=== PATIENT | female | born 1975 | race Caucasian/White ===

== ENCOUNTER 2017-11-25 13:38 | Emergency (ER) | payer BC ==
[2017-11-25] MEDS ORDERED: ACETAMINOPHEN TAB 325 MG TAB PO STA (15:08)
--- NOTE | 2017-11-25 15:44 | ED ---
General Adult HPI - General Chief complaint: Fall Stated complaint: Fell on friday/back pain Time Seen by Provider: 11/25/17 15:01 Source: patient, RN notes reviewed Mode of arrival: ambulatory Limitations: no limitations - History of Present Illness Initial comments: 42-year-old female presents to the emergency department for a chief complaint of left rib pain 3 days. Patient states she rolled out of her bed when she was asleep and fell hitting her ribs on the edge of a stair. Patient denies hitting her head or losing consciousness. Patient states it is painful to walk and take a deep breath. Patient denies shortness of breath or difficulty breathing. Patient sustained no other injuries from this incident. Patient states she has very mild right side pain but it is mostly in her posterior right ribs. Patient has no other complaints at this time including shortness of breath, chest pain, abdominal pain, nausea or vomiting, headache, or visual changes. - Related Data Home Medications Medication Instructions Recorded Confirmed Levothyroxine Sodium [Synthroid] 150 mcg PO DAILY 07/08/14 04/10/15 Omeprazole [PriLOSEC] 20 mg PO AC-BRKFST 07/08/14 04/10/15 busPIRone HCl [Buspar] 5 mg PO TID 07/08/14 04/10/15 clonazePAM [KlonoPIN] 0.5 mg PO BID 07/08/14 04/10/15 ALPRAZolam 0.5 mg PO DAILY PRN 07/11/14 04/10/15 Multivitamins, Thera [Multivitamin 1 tab PO DAILY 08/01/14 04/10/15 (formulary)] Orion-3 Fatty Acids/Fish Oil [Fish 1 cap PO DAILY 08/01/14 04/10/15 Oil 1,000 mg Softgel] Ascorbic Acid [Vitamin C] 500 mg PO DAILY@119904/04/15 04/10/15 Calcium Carbonate [Calcium] 600 mg PO DAILY 04/04/15 04/10/15 Cholecalciferol [Vitamin D3] 1,000 unit PO DAILY@1200 04/04/15 04/10/15 Cyanocobalamin [Vitamin B-12] 1,000 mcg PO DAILY@1200 04/04/15 04/10/15 Diclofenac Sodium Gel [Voltaren 4 gm TOPICAL BID PRN 04/04/15 04/10/15 Gel] Pyridoxine [Vitamin B-6] 200 mg PO DAILY 04/04/15 04/10/15 Ranitidine HCl [Zantac] 150 mg PO HS 04/04/15 04/10/15 Previous Rx's Medication Instructions Recorded HYDROcodone/APAP 7.5-325MG [[place] 1 each PO Q6HR PRN #90 tab 04/11/15 7.5-325] Azithromycin [Zithromax Z-pack] 250 mg PO DIRECTED #6 tab 11/25/17 Allergies Allergy/AdvReac Type Severity Reaction Status Date / Time NSAIDS (Non-Steroidal Allergy Unknown HX OF Verified 04/10/15 18:44 Anti-Inflamma STOMACH BLEEDING, TOLD NOT TO TAKE. HIVES AROUND MOUTH Review of Systems ROS Statement: Those systems with pertinent positive or pertinent negative responses have been documented in the HPI. ROS Other: All systems not noted in ROS Statement are negative. Past Medical History Past Medical History: GERD/Reflux, Osteoarthritis (OA), Thyroid Disorder Additional Past Medical History / Comment(s): HX OF STOMACH BLEED, TMJ DISORDER. Started w/neck,shoulder pain in January, trouble walking since Labor Day weekend, now having some bowel/bladder problems, seeing neurologist 04-05, possible MS-trying to rule out History of Any Multi-Drug Resistant Organisms: None Reported Past Surgical History: Section, Hernia Repair Additional Past Surgical History / Comment(s): SINUS SURG, LAPAROSCOPY, Right OOPHERECTOMY JUL 2014. Jaw surg.04-10-15 anterior cervical fusion c4-c7 Past Anesthesia/Blood Transfusion Reactions: No Reported Reaction, Family History of Problems w/ Anesthesia Additional Past Anesthesia/Blood Transfusion Reaction / Comment(s): PTS MOTHER HAS PONV. Past Psychological History: Anxiety Smoking Status: Current every day smoker Past Alcohol Use History: Rare Past Drug Use History: None Reported - Past Family History Mother Family Medical History: No Reported History Additional Family Medical History / Comment(s): ddd, ulcerative colitis Father Family Medical History: Osteoarthritis (OA) General Exam Limitations: no limitations General appearance: alert, in no apparent distress (Patient is pleasantly sitting on edge of bed interacting without difficulty.) Head exam: Present: atraumatic, normocephalic, normal inspection Eye exam: Present: normal appearance, PERRL, EOMI. Absent: scleral icterus, conjunctival injection, periorbital swelling ENT exam: Present: normal exam, normal oropharynx, mucous membranes moist, TM's normal bilaterally, normal external ear exam Neck exam: Present: normal inspection, full ROM. Absent: tenderness, meningismus, lymphadenopathy Respiratory exam: Present: normal lung sounds bilaterally. Absent: respiratory distress, wheezes, rales, rhonchi, stridor Cardiovascular Exam: Present: regular rate, normal rhythm, normal heart sounds. Absent: systolic murmur, diastolic murmur, rubs, gallop, clicks GI/Abdominal exam: Present: soft, normal bowel sounds. Absent: distended, tenderness (no tenderness to palpation), guarding, rebound, rigid Back exam: Present: full ROM, other (Patient has mild ecchymosis in the left posterior ribs correlated with tenderness. No step off palpated. ). Absent: CVA tenderness (R), CVA tenderness (L), vertebral tenderness Course Vital Signs 11/25/17 11/25/17 13:43 16:23 Temperature 98.0 F 99.3 F Pulse Rate 106 H 118 H Respiratory 18 20 Rate Blood Pressure 93/64 124/83 O2 Sat by Pulse 100 100 Oximetry Medical Decision Making - Medical Decision Making 42-year-old female presented to the emergency room for a chief complaint of left -sided rib pain 3 days. Patient rolled out of bed and fell hitting her ribs on a step. Patient did not hit her head or lose consciousness. Patient has had Tylenol and Flexeril which has helped with the pain. Patient states it hurts to press her ribs or take a deep breath. Patient denies shortness of breath or difficult deep breathing. On exam there is mild ecchymosis noted on the posterior ribs correlated with tenderness. No step-off palpated. X-ray of the ribs and PA chest shows no displaced left rib fracture. However there are patchy infiltrates mid and lower lungs. Inflammatory process such as interstitial pneumonitis and hypersensitivity pneumonitis are in the differential as well as infectious respiratory signs. Patient was sightly tachycardia at 118 with blood pressure 93/64 and 124/83. Patient was consistently 100% at room air. Because of these vitals lab work was ordered. CBC shows a white count of 11.4. The remainder of the CBC and CMP were unremarkable. Lactic acid within normal limits. Patient was given Rocephin and azithromycin IV in the emergency department. She will be given a Z-Trevon outpatient. She is to follow-up with the airfield operations specialist in one to 2 days. She is to return to the emergency determine if she notices any worsening symptoms, shortness of breath, or fever. - Lab Data Result diagrams: 11/25/17 16:50 11/25/17 16:50 Lab Results 11/25/17 11/25/17 11/25/17 Range/Units 16:50 16:50 16:50 WBC 11.4 H (3.8-10.6) k/uL RBC 3.57 L (3.80-5.40) m/uL Hgb 10.6 L (11.4-16.0) gm/dL Hct 33.2 L (34.0-46.0) % MCV 93.0 (80.0-100.0) fL MCH 29.8 (25.0-35.0) pg MCHC 32.1 (31.0-37.0) g/dL RDW 14.3 (11.5-15.5) % Plt Count 258 (150-450) k/uL Neutrophils % 83 % Lymphocytes % 10 % Monocytes % 4 % Eosinophils % 2 % Basophils % 0 % Neutrophils # 9.5 H (1.3-7.7) k/uL Lymphocytes # 1.2 (1.0-4.8) k/uL Monocytes # 0.4 (0-1.0) k/uL Eosinophils # 0.2 (0-0.7) k/uL Basophils # 0.0 (0-0.2) k/uL Sodium 143 (137-145) mmol/L Potassium 3.8 (3.5-5.1) mmol/L Chloride 106 (98-107) mmol/L Carbon Dioxide 24 (22-30) mmol/L Anion Gap 13 mmol/L BUN 9 (7-17) mg/dL Creatinine 0.60 (0.52-1.04) mg/dL Est GFR (CKD-EPI)AfAm >90 (>60 ml/min/1.73 sqM) Est GFR (CKD-EPI)NonAf >90 (>60 ml/min/1.73 sqM) Glucose 94 (74-99) mg/dL Plasma Lactic Acid [place]ad 1.4 (0.7-2.0) mmol/L Calcium 8.7 (8.4-10.2) mg/dL Total Bilirubin 0.3 (0.2-1.3) mg/dL AST 51 H (14-36) U/L ALT 79 H (9-52) U/L Alkaline Phosphatase 96 (38-126) U/L Total Protein 6.0 L (6.3-8.2) g/dL Albumin 3.5 (3.5-5.0) g/dL Disposition Clinical Impression: Pneumonia, Pneumonitis Disposition: HOME SELF-CARE Condition: Good Instructions: Pneumonitis (ED), Pneumonia (ED) Additional Instructions: Please take antibiotic as directed. Please return to the emergency department if you have any worsening symptoms, shortness of breath, or fever. Follow-up with pulmonology in one to 2 days. Prescriptions: Azithromycin [Zithromax Z-pack] 250 mg PO DIRECTED #6 tab Is patient prescribed a controlled substance at d/c from ED?: No Referrals: Sloan Cook MD [Primary Care Provider] - 1-2 days Willian Banks DO [Doctor of Osteopathic Medicine] - 1-2 days Time of Disposition: 19:14
--- NOTE | 2017-11-25 15:49 | XR ---
EXAMINATION TYPE: PA chest and left rib series DATE OF EXAM: 11/25/2017 COMPARISON: 04/05/2015 HISTORY: 42-year-old female with lower left rib pain after fall TECHNIQUE: 5 views FINDINGS: ACDF hardware. Heart normal size. Aorta within normal limits. Patchy opacities mid and lower lungs. No pneumothorax or pleural effusion. Evaluation of the left-sided ribs shows no displaced fracture. IMPRESSION: 1. No displaced left rib fracture. 2. Patchy infiltrates mid and lower lungs. Correlate for any infectious respiratory signs/symptoms to exclude pneumonia. Inflammatory processes such as interstitial pneumonitis and hypersensitivity pneu monitis are also in the differential. Follow-up is recommended.
[2017-11-25] MEDS ORDERED: SODIUM CHLORIDE 0.9% 1,000 ML IV STA (16:38)
[2017-11-25] MEDS ORDERED: cefTRIAXone IN SWFI 1,000 MG/10 ML SYRINGE IVP STA (17:06)
[2017-11-25] MEDS ORDERED: AZITHROMYCIN 500 MG in SODIUM CHLORIDE 0.9% 250 ML IVPB STA (17:06)
[2017-11-25 17:08] LABS: Basophils % (A) 0 %; Eosinophils # (A) 0.2 k/uL (0-0.7); Eosinophils % (A) 2 %; HCT 33.2 % (34.0-46.0); HGB 10.6 gm/dL (11.4-16.0); Lymphocytes # (A) 1.2 k/uL (1.0-4.8); Lymphocytes % (A) 10 %; MCH 29.8 pg (25.0-35.0); MCHC 32.1 g/dL (31.0-37.0); Mean Platelet Volume 7.1; Monocytes # (A) 0.4 k/uL (0-1.0); Monocytes % (A) 4 %; Neutrophils # (A) 9.5 k/uL (1.3-7.7); Neutrophils % (A) 83 %; Platelet Count 258 k/uL (150-450); RBC 3.57 m/uL (3.80-5.40); RDW 14.3 % (11.5-15.5); WBC 11.4 k/uL (3.8-10.6)
[2017-11-25 17:19] LABS: ALT 79 U/L (9-52); AST 51 U/L (14-36); Albumin 3.5 g/dL (3.5-5.0); Alkaline Phosphatase 96 U/L (38-126); Anion Gap 13 mmol/L; Blood Urea Nitrogen 9 mg/dL (7-17); Calcium 8.7 mg/dL (8.4-10.2); Carbon Dioxide 24 mmol/L (22-30); Chloride 106 mmol/L (98-107); Glucose 94 mg/dL (74-99); Potassium 3.8 mmol/L (3.5-5.1); Sodium 143 mmol/L (137-145); Total Bilirubin 0.3 mg/dL (0.2-1.3)
[2017-11-25 19:47] VITALS: BP 98/55; PULSE 98; RESP 16; TEMP 97.8
== END 2017-11-25 19:44 | disposition home or self-care (01) ==
LOC: EC 13:38
DX: J18.9 Pneumonia, unspecified organism (principal); S20.222A Contusion of left back wall of thorax, initial encounter; K21.9 Gastro-esophageal reflux disease without esophagitis; M19.90 Unspecified osteoarthritis, unspecified site; E07.9 Disorder of thyroid, unspecified; F41.9 Anxiety disorder, unspecified; F17.200 Nicotine dependence, unspecified, uncomplicated; Z79.899 Other long term (current) drug therapy; Z88.6 Allergy status to analgesic agent; W06.XXXA Fall from bed, initial encounter; Y92.009 Unspecified place in unspecified non-institutional (private) residence as the place of occurrence of the external cause
CPT/HCPCS: 36415; 80053; 83605; 85025; 87040; 71101; 99283; 96374; 96375; 96361; J0456; J0696

== ENCOUNTER 2019-06-23 20:06 | Observation (INO) | payer BC ==
--- NOTE | 2019-06-23 21:04 | ED ---
General Adult HPI - General Chief complaint: Seizure Stated complaint: seizure Time Seen by Provider: 06/23/19 20:40 Source: patient, RN notes reviewed Mode of arrival: EMS Limitations: no limitations - History of Present Illness Initial comments: 44-year-old female with a past medical history of GERD, possible MS, Graves' disease presents to the emergency department for a chief complaint of possible seizure. Patient was sitting at the dinner table eating cereal. was nearby. He states that he heard gurgling and looked over and patient was sitting up unresponsive. States that her mouth was foaming in her jaw was clenching on and off. States her whole body became rigid. He began sliding her down to the floor and there was blood coming out of her mouth because she bit her tongue. This episode lasted about a minute. States that patient was very lethargic and confused for about 5 minutes following this. Patient states she feels normal at this time. He states that she is back to her baseline. This has never happened before. Patient does have a lesion on her brain that they think is likely an old stroke but they cannot rule out multiple sclerosis. She has had several MRIs for this. Patient has no other complaints at this time including shortness of breath, chest pain, abdominal pain, nausea or vomiting, headache, or visual changes. - Related Data Home Medications Medication Instructions Recorded Confirmed Cholecalciferol [Vitamin D3 (25 5,000 unit PO DAILY 06/23/19 06/23/19 Mcg = 1000 Iu)] Levothyroxine Sodium [Synthroid] 125 mcg PO DAILY 06/23/19 06/23/19 Omeprazole [PriLOSEC] 20 mg PO DAILY 06/23/19 06/23/19 buPROPion HCL [Wellbutrin XL] 150 mg PO DAILY 06/23/19 06/23/19 clonazePAM [KlonoPIN] 0.5 mg PO HS PRN 06/23/19 06/23/19 tiZANidine [Zanaflex] 4 mg PO Q6HR PRN 06/23/19 06/23/19 traMADol HCL 50 - 100 mg PO Q4-6H PRN 06/23/19 06/23/19 Allergies Allergy/AdvReac Type Severity Reaction Status Date / Time NSAIDS (Non-Steroidal AdvReac Unknown HX OF Verified 06/23/19 23:47 Anti-Inflamma STOMACH BLEEDING, TOLD NOT TO TAKE. HIVES AROUND MOUTH Review of Systems ROS Statement: Those systems with pertinent positive or pertinent negative responses have been documented in the HPI. ROS Other: All systems not noted in ROS Statement are negative. Past Medical History Past Medical History: GERD/Reflux, Osteoarthritis (OA), Thyroid Disorder Additional Past Medical History / Comment(s): HX OF STOMACH BLEED, TMJ DISORDER. Started w/neck,shoulder pain in January, trouble walking since Labor Day weekend, now having some bowel/bladder problems, seeing neurologist 04-05, possible MS- trying to rule out History of Any Multi-Drug Resistant Organisms: None Reported Past Surgical History: Section, Hernia Repair Additional Past Surgical History / Comment(s): SINUS SURG, LAPAROSCOPY, Right OOPHERECTOMY JUL 2014. Jaw surg.04-10-15 anterior cervical fusion c4-c7 Past Anesthesia/Blood Transfusion Reactions: No Reported Reaction, Family History of Problems w/ Anesthesia Additional Past Anesthesia/Blood Transfusion Reaction / Comment(s): PTS MOTHER HAS PONV. Past Psychological History: Anxiety Smoking Status: Current every day smoker Past Alcohol Use History: Rare Past Drug Use History: None Reported - Past Family History Mother Family Medical History: No Reported History Additional Family Medical History / Comment(s): ddd, ulcerative colitis Father Family Medical History: Osteoarthritis (OA) General Exam Limitations: no limitations General appearance: alert, in no apparent distress Head exam: Present: atraumatic, normocephalic, normal inspection Eye exam: Present: normal appearance, PERRL, EOMI. Absent: scleral icterus, conjunctival injection, periorbital swelling ENT exam: Present: normal exam, mucous membranes moist. Absent: normal oropharynx (small laceration noted to the left lateral tongue) Neck exam: Present: normal inspection, full ROM. Absent: tenderness, meningismus, lymphadenopathy Respiratory exam: Present: normal lung sounds bilaterally. Absent: respiratory distress, wheezes, rales, rhonchi, stridor Cardiovascular Exam: Present: regular rate, normal rhythm, normal heart sounds. Absent: systolic murmur, diastolic murmur, rubs, gallop, clicks GI/Abdominal exam: Present: soft, normal bowel sounds. Absent: distended, tenderness, guarding, rebound, rigid Neurological exam: Present: alert, oriented X3, CN II-XII intact Course Vital Signs 06/23/19 06/23/19 06/23/19 20:12 21:41 23:02 Temperature 99.0 F Pulse Rate 109 H 108 H 103 H Respiratory 18 18 18 Rate Blood Pressure 104/75 103/79 111/83 O2 Sat by Pulse 100 97 98 Oximetry EKG Findings - EKG Comments: EKG Findings:: sinus tachycardia, ventricular rate 112, when necessary interval 160, QTc 453 Medical Decision Making - Medical Decision Making Patient mildly tachycardic here in the emergency department. States that she is always somewhat tachycardic. Patient is well-appearing although does have some noted dystonic movements. No ataxia. He saw laceration noted to the lateral aspect of the tongue. Clinical description of scenario does sound like a se izure. Patient was found have a hemoglobin of 8.7. She states this is chronic. CMP unremarkable. Urine drug screen does show urine opiates however patient sped history shows she takes [place]. Patient is noted to have stopped Klonopin 1 week ago after taking this for about 20 years. She was previously on this for restless leg syndrome. Possible benzodiazepine withdrawal. CT brain shows a negative scan. Patient reevaluated. She is feeling her normal self although somewhat "frazzled." Given new onset seizure as well as a somewhat dystonic movements patient will be admitted for evaluation by neurology. Troponin trending at this time given T-wave inversions in ekg. Patient denying any chest pain or shortness of breath. - Lab Data Result diagrams: 06/23/19 20:45 06/23/19 20:45 Lab Results 06/23/19 06/23/19 06/23/19 Range/Units 10:20 20:45 20:45 WBC 5.4 (3.8-10.6) k/uL RBC 3.61 L (3.80-5.40) m/uL Hgb 8.7 L (11.4-16.0) gm/dL Hct 28.3 L (34.0-46.0) % MCV 78.3 L (80.0-100.0) fL MCH 24.0 L (25.0-35.0) pg MCHC 30.6 L (31.0-37.0) g/dL RDW 15.8 H (11.5-15.5) % Plt Count 370 (150-450) k/uL Neutrophils % 71 % Lymphocytes % 19 % Monocytes % 6 % Eosinophils % 2 % Basophils % 1 % Neutrophils # 3.8 (1.3-7.7) k/uL Lymphocytes # 1.0 (1.0-4.8) k/uL Monocytes # 0.3 (0-1.0) k/uL Eosinophils # 0.1 (0-0.7) k/uL Basophils # 0.1 (0-0.2) k/uL Hypochromasia Marked Poikilocytosis Slight Microcytosis Slight Sodium 135 L (137-145) mmol/L Potassium 4.3 (3.5-5.1) mmol/L Chloride 99 (98-107) mmol/L Carbon Dioxide 28 (22-30) mmol/L Anion Gap 8 mmol/L BUN 11 (7-17) mg/dL Creatinine 0.70 (0.52-1.04) mg/dL Est GFR (CKD-EPI)AfAm >90 (>60 ml/min/1.73 sqM) Est GFR (CKD-EPI)NonAf >90 (>60 ml/min/1.73 sqM) Glucose 100 H (74-99) mg/dL Calcium 9.3 (8.4-10.2) mg/dL Total Bilirubin 0.4 (0.2-1.3) mg/dL AST 25 (14-36) U/L ALT 10 (4-34) U/L Alkaline Phosphatase 72 (38-126) U/L Troponin I <0.012 (0.000-0.034) ng/mL Total Protein 7.0 (6.3-8.2) g/dL Albumin 4.2 (3.5-5.0) g/dL Urine Color Urine Appearance (Clear) Urine pH (5.0-8.0) Ur Specific [place] (1.001-1.035) Urine Protein (Negative) Urine Glucose (UA) (Negative) Urine Ketones (Negative) Urine Blood (Negative) Urine Nitrite (Negative) Urine Bilirubin (Negative) Urine Urobilinogen (<2.0) mg/dL Ur Leukocyte Esterase (Negative) Urine HCG, Qual (Not Detectd) Urine Opiates Screen (NotDetected) Ur Oxycodone Screen (NotDetected) Urine Methadone Screen (NotDetected) Ur Propoxyphene Screen (NotDetected) Ur Barbiturates Screen (NotDetected) U Tricyclic Antidepress (NotDetected) Ur Phencyclidine Scrn (NotDetected) Ur Amphetamines Screen (NotDetected) U Methamphetamines Scrn (NotDetected) U Benzodiazepines Scrn (NotDetected) Urine Cocaine Screen (NotDetected) U Marijuana (THC) Screen (NotDetected) 06/23/19 06/23/19 Range/Units 20:45 20:45 WBC (3.8-10.6) k/uL RBC (3.80-5.40) m/uL Hgb (11.4-16.0) gm/dL Hct (34.0-46.0) % MCV (80.0-100.0) fL MCH (25.0-35.0) pg MCHC (31.0-37.0) g/dL RDW (11.5-15.5) % Plt Count (150-450) k/uL Neutrophils % % Lymphocytes % % Monocytes % % Eosinophils % % Basophils % % Neutrophils # (1.3-7.7) k/uL Lymphocytes # (1.0-4.8) k/uL Monocytes # (0-1.0) k/uL Eosinophils # (0-0.7) k/uL Basophils # (0-0.2) k/uL Hypochromasia Poikilocytosis Microcytosis Sodium (137-145) mmol/L Potassium (3.5-5.1) mmol/L Chloride (98-107) mmol/L Carbon Dioxide (22-30) mmol/L Anion Gap mmol/L BUN (7-17) mg/dL Creatinine (0.52-1.04) mg/dL Est GFR (CKD-EPI)AfAm (>60 ml/min/1.73 sqM) Est GFR (CKD-EPI)NonAf (>60 ml/min/1.73 sqM) Glucose (74-99) mg/dL Calcium (8.4-10.2) mg/dL Total Bilirubin (0.2-1.3) mg/dL AST (14-36) U/L ALT (4-34) U/L Alkaline Phosphatase (38-126) U/L Troponin I (0.000-0.034) ng/mL Total Protein (6.3-8.2) g/dL Albumin (3.5-5.0) g/dL Urine Color Yellow Urine Appearance Clear (Clear) Urine pH 7.5 (5.0-8.0) Ur Specific [place] 1.012 (1.001-1.035) Urine Protein Negative (Negative) Urine Glucose (UA) Negative (Negative) Urine Ketones Negative (Negative) Urine Blood Negative (Negative) Urine Nitrite Negative (Negative) Urine Bilirubin Negative (Negative) Urine Urobilinogen <2.0 (<2.0) mg/dL Ur Leukocyte Esterase Negative (Negative) Urine HCG, Qual Not Detected (Not Detectd) Urine Opiates Screen Detected H (NotDetected) Ur Oxycodone Screen Not Detected (NotDetected) Urine Methadone Screen Not Detected (NotDetected) Ur Propoxyphene Screen Not Detected (NotDetected) Ur Barbiturates Screen Not Detected (NotDetected) U Tricyclic Antidepress Detected H (NotDetected) Ur Phencyclidine Scrn Not Detected (NotDetected) Ur Amphetamines Screen Not Detected (NotDetected) U Methamphetamines Scrn Not Detected (NotDetected) U Benzodiazepines Scrn Not Detected (NotDetected) Urine Cocaine Screen Not Detected (NotDetected) U Marijuana (THC) Screen Not Detected (NotDetected) Disposition Clinical Impression: New onset seizure, Anemia Disposition: ADMITTED IP TO THIS [facility] Condition: Fair Is patient prescribed a controlled substance at d/c from ED?: No Time of Disposition: 22:46
--- NOTE | 2019-06-23 21:37 | CT ---
EXAMINATION TYPE: CT brain wo con DATE OF EXAM: 06/23/2019 COMPARISON: None HISTORY: Seizure CT DLP: 1053.4 mGycm Automated exposure control for dose reduction was used. Ventricles have normal size. There is no mass effect nor midline shift. There is no sign of intracran ial hemorrhage. Calvarium is intact. There is no evidence of cerebral edema. Impression negative unenhanced head CT scan.
[2019-06-23 21:49] LABS: Appearance,Urine Clear (Clear); Basophils # (A) 0.1 k/uL (0-0.2); Basophils % (A) 1 %; Bilirubin,Urine Negative (Negative); Blood,Urine Negative (Negative); Color,Urine Yellow; Eosinophils # (A) 0.1 k/uL (0-0.7); Eosinophils % (A) 2 %; Glucose,Urine (UA) Negative (Negative); HCT 28.3 % (34.0-46.0); HGB 8.7 gm/dL (11.4-16.0); Hypochromasia Marked; Ketones,Urine Negative (Negative); Leukocyte Esterase,Urine Negative (Negative); Lymphocytes % (A) 19 %; MCHC 30.6 g/dL (31.0-37.0); MCV 78.3 fL (80.0-100.0); Mean Platelet Volume 7.1; Microcytosis Slight; Monocytes # (A) 0.3 k/uL (0-1.0); Monocytes % (A) 6 %; Neutrophils # (A) 3.8 k/uL (1.3-7.7); Neutrophils % (A) 71 %; Nitrite,Urine Negative (Negative); PH, Urine 7.5 (5.0-8.0); Platelet Count 370 k/uL (150-450); Poikilocytosis Slight; Protein,Urine Negative (Negative); RBC 3.61 m/uL (3.80-5.40); RDW 15.8 % (11.5-15.5); Specific Gravity,Urine 1.012 (1.001-1.035); Urobilinogen,Urine <2.0 mg/dL (<2.0); WBC 5.4 k/uL (3.8-10.6)
[2019-06-23 22:02] LABS: Amphetamine Screen,Urine Not Detected (NotDetected); Barbiturate Screen,Urine Not Detected (NotDetected); Benzodiazepines Screen,Urine Not Detected (NotDetected); Cocaine Screen,Urine Not Detected (NotDetected); Methadone Screen, Urine Not Detected (NotDetected); Opiate Screen,Urine Detected (NotDetected); Oxycodone Screen, Urine Not Detected (NotDetected); Phencyclidine Screen,Urine Not Detected (NotDetected); Tricyclic Antidepressant,Urine Detected (NotDetected); Urn Cannabinoid Scrn Not Detected (NotDetected)
[2019-06-23 22:04] LABS: ALT 10 U/L (4-34); AST 25 U/L (14-36); African American GFR (CKD) >90 (>60 ml/min/1.73 sqM); Albumin 4.2 g/dL (3.5-5.0); Alkaline Phosphatase 72 U/L (38-126); Anion Gap 8 mmol/L; Blood Urea Nitrogen 11 mg/dL (7-17); Calcium 9.3 mg/dL (8.4-10.2); Carbon Dioxide 28 mmol/L (22-30); Chloride 99 mmol/L (98-107); Glucose 100 mg/dL (74-99); Non-African American GFR(CKD) >90 (>60 ml/min/1.73 sqM); Potassium 4.3 mmol/L (3.5-5.1); Sodium 135 mmol/L (137-145); Total Bilirubin 0.4 mg/dL (0.2-1.3)
[2019-06-23] MEDS ORDERED: SODIUM CHLORIDE 0.9% 1,000 ML IV ONE (22:24)
[2019-06-23] MEDS ORDERED: SODIUM CHLORIDE 0.9% 1,000 ML IV SCH (22:30)
[2019-06-23] MEDS ORDERED: LORazepam 2 MG/ML INJ IV STA (22:33)
[2019-06-23] MEDS ORDERED: NALOXONE 0.4 MG/ML 1 ML VIAL IV PRN (22:34)
[2019-06-23] MEDS ORDERED: LORazepam 2 MG/ML INJ IV PRN (22:35)
[2019-06-24 05:24] VITALS: BP 119/82; PULSE 98; RESP 16; TEMP 98
[2019-06-24] MEDS ORDERED: clonazePAM 0.5 MG TAB PO PRN (14:27)
[2019-06-24] MEDS ORDERED: tiZANidine 4 MG TAB PO PRN (14:27)
[2019-06-24] MEDS ORDERED: buPROPion XL 150 MG TAB.ER.24H PO SCH (14:30)
[2019-06-24] MEDS ORDERED: PANTOPRAZOLE 40 MG TABLET PO SCH (14:30)
[2019-06-24] MEDS ORDERED: LEVOTHYROXINE 125 MCG TAB PO SCH (14:30)
--- NOTE | 2019-06-24 20:03 | P.HPIM ---
History of Present Illness H&P Date: 06/24/19 Chief Complaint: seizure History of presenting complaint: This is a pleasant 44-year-old patient of Dr. Cook. Chronic stable medical conditions include GERD, Rosanna arthritis, hypothyroid. Patient has a movement disorder and also numbness tingling in the limbs or weakness. Patient also has intermittent changes in his vision. She has been off the operative from the [facility] neurologists including Dr. Teri Lake from [facility] and also on the urologist out of [facility]. That has been no conclusive diagnosis. Patient decided not to follow with any neurologist. She was sitting at the breakfast table having a meal, was present nearby. He heard a gurgling and looked over and patient was sitting unresponsive. Home. Being and her jaws clenched on and off. Hold body became rigid. He slid to the floor and she bit her tongue and also blood coming out. The episode lasted for about a minute. Post episode the patient was lethargic and confused for a few minutes. Potential if the ER she had come back herself. She's had MRIs in the past. When I interviewed the patient her mother and father present. No prior history of seizures or head injury. Review of systems: GEN.: Tired EYES: Occasional change in vision HEENT: None NECK: None RESPIRATORY: None CARDIOVASCULAR: None GASTROINTESTINAL: None GENITOURINARY: None MUSCULOSKELETAL: Some aches and pains in the joints LYMPHATICS: None HEMATOLOGICAL: None PSYCHIATRY: None NEUROLOGICAL: Has above Social history: Smokes half a pack a day. . Alcohol rarely Physical examination: VITAL SIGNS: 99, 19, 18, 104/75, 100% on room air GENERAL: BMI 21, laying in bed comfortable. EYES: Pupils equal. Conjunctiva normal. HEENT: External appearance of nose and ears normal, oral cavity grossly normal. NECK: JVD not raised; masses not palpable. HEART: First and second heart sounds are normal; no edema. LUNGS: Respiratory rate normal; clear to auscultation. ABDOMEN: Soft, nontender, liver spleen not palpable, no masses palpable. PSYCH: Alert and oriented x3; mood and affect normal. NEUROLOGICAL: Cranial nerves grossly intact; no facial asymmetry, power and sensation grossly intact. LYMPHATICS: No lymph nodes palpable in the axilla and neck INVESTIGATIONS, reviewed in the clinical context: White count 5.4 hemoglobin 8.7 platelets 370 pressure 4.3 creatinine 0.70 Urine drug screen-positive for opiates and tricyclic antidepressants EKG tracing personally reviewed by me-sinus rhythm, abnormal T waves Computed tomography scan of the brain-negative Assessment: -Generalized tonic-clonic seizure. First episode. No obvious precipitating cause. The patient has undiagnosed neurological condition for which she is seeing different neurologist. -GERD -Hypothyroid -Chronic nicotine dependence, cigarette smoker Plan: Neuro checks have been ordered. Neurology was consulted. Home medications are to be continued. Care was discussed in length with the patient. She was told to follow up with neurologist. She'll also told not to drive until further notice onto clear by neurologist. This was reinforced and discussed with both parents present with the patient. Advised against smoking. Past Medical History Past Medical History: GERD/Reflux, Osteoarthritis (OA), Thyroid Disorder Additional Past Medical History / Comment(s): HX OF STOMACH BLEED, TMJ DISORDER. Started w/neck,shoulder pain in January, trouble walking since Labor Day weekend, now having some bowel/bladder problems, seeing neurologist 04-05, possible MS- trying to rule out History of Any Multi-Drug Resistant Organisms: None Reported Past Surgical History: Section, Hernia Repair Additional Past Surgical History / Comment(s): SINUS SURG, LAPAROSCOPY, Right OOPHERECTOMY JUL 2014. Jaw surg.04-10-15 anterior cervical fusion c4-c7 Past Anesthesia/Blood Transfusion Reactions: No Reported Reaction, Family History of Problems w/ Anesthesia Additional Past Anesthesia/Blood Transfusion Reaction / Comment(s): PTS MOTHER HAS PONV. Past Psychological History: Anxiety Smoking Status: Current every day smoker Past Alcohol Use History: Rare Past Drug Use History: None Reported - Past Family History Mother Family Medical History: No Reported History Additional Family Medical History / Comment(s): ddd, ulcerative colitis Father Family Medical History: Osteoarthritis (OA) Medications and Allergies Home Medications Medication Instructions Recorded Confirmed Type Cholecalciferol [Vitamin D3 (25 5,000 unit PO DAILY 06/23/19 06/23/19 History Mcg = 1000 Iu)] Levothyroxine Sodium [Synthroid] 125 mcg PO DAILY 06/23/19 06/23/19 History Omeprazole [PriLOSEC] 20 mg PO DAILY 06/23/19 06/23/19 History buPROPion HCL [Wellbutrin XL] 150 mg PO DAILY 06/23/19 06/23/19 History clonazePAM [KlonoPIN] 0.5 mg PO HS PRN 06/23/19 06/23/19 History tiZANidine [Zanaflex] 4 mg PO Q6HR PRN 06/23/19 06/23/19 History traMADol HCL 50 - 100 mg PO Q4-6H PRN 06/23/19 06/23/19 History Ketamine Compound 1 ml TOPICAL QID 06/24/19 06/24/19 History Allergies Allergy/AdvReac Type Severity Reaction Status Date / Time NSAIDS (Non-Steroidal AdvReac Unknown HX OF Verified 06/23/19 23:47 Anti-Inflamma STOMACH BLEEDING, TOLD NOT TO TAKE. HIVES AROUND MOUTH Physical Exam Vitals: Vital Signs Temp Pulse Resp BP Pulse Ox 06/24/19 05:24 98 F 98 16 119/82 99 06/24/19 00:58 100 18 113/82 97 06/23/19 23:02 103 H 18 111/83 98 06/23/19 21:41 108 H 18 103/79 97 06/23/19 20:12 99.0 F 109 H 18 104/75 100 Intake and Output 06/23/19 06/24/19 06/24/19 22:59 06:59 14:59 Other: Weight 52.163 kg Results CBC & Chem 7: 06/23/19 20:45 06/23/19 20:45 Labs: Abnormal Lab Results - Last 24 Hours (Table) 06/23/19 06/23/19 06/23/19 Range/Units 20:45 20:45 20:45 RBC 3.61 L (3.80-5.40) m/uL Hgb 8.7 L (11.4-16.0) gm/dL Hct 28.3 L (34.0-46.0) % MCV 78.3 L (80.0-100.0) fL MCH 24.0 L (25.0-35.0) pg MCHC 30.6 L (31.0-37.0) g/dL RDW 15.8 H (11.5-15.5) % Sodium 135 L (137-145) mmol/L Glucose 100 H (74-99) mg/dL Urine Opiates Screen Detected H (NotDetected) U Tricyclic Antidepress Detected H (NotDetected)
--- NOTE | 2019-06-24 20:08 | P.DS ---
Providers Date of admission: 06/23/19 22:34 Expected date of discharge: 06/24/19 Attending physician: Dinesh Lopez Consults: 06/23/19 22:34 Consult Physician Routine Consulting Provider: Sara Thurston Consult Reason/Comments: new onset seizure Do you want consulting provider notified?: Yes Primary care physician: Sloan Cook [facility] Course: Chief Complaint: seizure History of presenting complaint: This is a pleasant 44-year-old patient of Dr. Cook. Chronic stable medical conditions include GERD, Rosanna arthritis, hypothyroid. Patient has a movement disorder and also numbness tingling in the limbs or weakness. Patient also has intermittent changes in his vision. She has been off the operative from the large neurologists including Dr. Teri Lake from [facility] and also on the urologist out of [facility]. That has been no conclusive diagnosis. Patient decided not to follow with any neurologist. She was sitting at the breakfast table having a meal, was present nearby. He heard a gurgling and looked over and patient was sitting unresponsive. Home. Being and her jaws clenched on and off. Hold body became rigid. He slid to the floor and she bit her tongue and also blood coming out. The episode lasted for about a minute. Post episode the patient was lethargic and confused for a few minutes. Potential if the ER she had come back herself. She's had MRIs in the past. When I interviewed the patient her mother and father present. No prior history of seizures or head injury.patient advised not to drive till further notice and follow-up with neurologist. Discussed with Dr. Thurston the neurologist. Given this is the first episode, no need for antiseizure medicines. consultation: Dr. Thurston-neurologist Physical examination: VITAL SIGNS: 98, 98, 16, 11 9/82, 99% room air GENERAL: BMI 21, sitting up, comfortable EYES: Pupils equal. Conjunctiva normal. HEENT: External appearance of nose and ears normal, oral cavity grossly normal. NECK: JVD not raised; masses not palpable. HEART: First and second heart sounds are normal; no edema. LUNGS: Respiratory rate normal; clear to auscultation. ABDOMEN: Soft, nontender, liver spleen not palpable, no masses palpable. PSYCH: Alert and oriented x3; mood and affect normal. NEUROLOGICAL: Cranial nerves grossly intact; no facial asymmetry, power and sensation grossly intact. INVESTIGATIONS, reviewed in the clinical context: White count 5.4 hemoglobin 8.7 platelets 370 pressure 4.3 creatinine 0.70 Urine drug screen-positive for opiates and tricyclic antidepressants EKG tracing personally reviewed by me-sinus rhythm, abnormal T waves Computed tomography scan of the brain-negative Assessment: -Generalized tonic-clonic seizure. First episode. No obvious precipitating cause. -GERD -Hypothyroid -Chronic nicotine dependence, cigarette smoker Plan: DC home. No driving until further notice, until cleared by neurologist Patient Condition at Discharge: Stable Plan - Discharge Summary Discharge Rx Participant: No New Discharge Prescriptions: Continue traMADol HCL 50 - 100 mg PO Q4-6H PRN PRN Reason: Pain tiZANidine [Zanaflex] 4 mg PO Q6HR PRN PRN Reason: Muscle Spasm buPROPion HCL [Wellbutrin XL] 150 mg PO DAILY Levothyroxine Sodium [Synthroid] 125 mcg PO DAILY clonazePAM [KlonoPIN] 0.5 mg PO HS PRN PRN Reason: Insomnia Omeprazole [PriLOSEC] 20 mg PO DAILY Cholecalciferol [Vitamin D3 (25 Mcg = 1000 Iu)] 5,000 unit PO DAILY Ketamine Compound 1 ml TOPICAL QID Discharge Medication List Cholecalciferol [Vitamin D3 (25 Mcg = 1000 Iu)] 5,000 unit PO DAILY 06/23/19 [History] Levothyroxine Sodium [Synthroid] 125 mcg PO DAILY 06/23/19 [History] Omeprazole [PriLOSEC] 20 mg PO DAILY 06/23/19 [History] buPROPion HCL [Wellbutrin XL] 150 mg PO DAILY 06/23/19 [History] clonazePAM [KlonoPIN] 0.5 mg PO HS PRN 06/23/19 [History] tiZANidine [Zanaflex] 4 mg PO Q6HR PRN 06/23/19 [History] traMADol HCL 50 - 100 mg PO Q4-6H PRN 06/23/19 [History] Ketamine Compound 1 ml TOPICAL QID 06/24/19 [History] Follow up Appointment(s)/Referral(s): Sloan Cook MD [Primary Care Provider] - 1-2 days Ozzy Trujillo MD [STAFF PHYSICIAN] - 1 Week Patient Instructions/Handouts: Nonepileptic Seizures (DC) Activity/Diet/Wound Care/Special Instructions: no driving till cleared by neurology. pt informed seizure precautions Hemoglobin not low enough for a transfusion, please follow up with your primary physician to monitor. Discharge Disposition: HOME SELF-CARE
--- NOTE | 2019-06-24 21:21 | P.CNNES ---
History of Present Illness Consult date: 06/24/19 Reason for Consult: Seizure Chief complaint: Seizure History of Present Illness: HISTORY OF PRESENT ILLNESS: Thank you for allowing me to evaluate Ms. Shazia Aguilera. Ms. Aguilera is a 44 year-old woman with PMhx of GERD, arthritis, TMJ, Grave's disease, anxiety, difficulty walking since Day weekend, presenting to [facility] for seizure-like event. No family at bedside during eval, but patient is a good historian. Pt states that she was having dinner yesterday when the next thing she remembered was being on the floor, surrounded by her family and EMS personnel. She did not have any prodromal symptoms. She was told that she started foaming in her mouth, jaw was clenched, there was blood coming out of her mouth because she had bit her tongue. No urinary/bowel incontinence. When she woke up, she was told that she could remember her son's name and was confused for about 5 minutes. She is back to baseline since then. Denies any recent sickness, fever, headache, nausea, vomiting, double/blurry vision. She states that about 1.5 weeks ago, she stopped taking her clonazepam. She as on a very dose, 0.5mg qday, and her PCP had agreed to discontinue it as she was doing better in terms of sleep. She has been taking clonazepam since her 20s. Denies any EtOH abuse history. denies any recent falls, head trauma. This is the first time she's ever had such an episode. Patient reports that she had some "neurological" symptoms previously for which she got extensive work-up including LP, MRI brain and full spine, showed some compression in the cervical spine, so she had a spine surgery, but she was told that the c-spine was not likely the etiology of her "neurological" symptoms. Patient was told that she possibly has a diagnosis of MS, but that diagnosis has not been officially made. PAST MEDICAL HISTORY: GERD, arthritis, TMJ, Grave's disease, anxiety, difficulty walking since Labor Day weekend PAST SURGICAL HISTORY: , hernia repair, R oopherectomy, c-spine surgery HOME MEDICATIONS: Vitamin D, synthroid, omeprazole, bupropion, clonazepam PRN ALLERGIES: NSAIDs SOCIAL HISTORY: Current everyday smoker FAMILY HISTORY: Mother with ulcerative colitis. Father with arthritis REVIEW OF SYSTEMS: The 14 systems are reviewed and no additional points are identified compared to the review of systems documented history and physical PHYSICAL EXAMINATION: VITAL SIGNS: T 98 HR 98 RR 16 BP 119/82 O2 sat 995 on RA GEN.: NAD, pleasant and cooperative HEENT: NCAT, sclera without icterus NECK: Supple SKIN AND EXTREMITIES: Warm to touch, no edema NEURO: MENTAL STATUS: Patient alert and oriented to self, place, time. Able to name the current president. Speech fluent, able to name and repeat, following all commands readily. No right and left disorientation, neglect CRANIAL NERVES II THROUGH XII: II: Pupils are equal and reactive to light symmetrically. No afferent pupillary defect. Visual chiang are intact. III, IV, : No ptosis. Extraocular movements full. No nystagmus. Reports double vision with vertical movement (with one eye and both eyes) V: Facial sensation intact from V1-3. VII. No clear facial asymmetry. VIII: Hearing intact to finger rub bilaterally. IX, X: Symmetric palate elevation. XI: Shoulder shrug intact. XII: Tongue midline without fasciculation or atrophy. MOTOR: Normal bulk/tone. No pronator drift or tremor. Strength is 5/5 throu ghout all 4 extremities. SENSORY: Intact to light touch in all 4 extremities. REFLEXES: Brisk throughout. Toes are upgoing. Clonus and Ac's both present COORDINATION: Finger to nose intact with no dysmetria but slightly slow/awkward during movement. GAIT: Narrow-based and stable. Able to toe/heel/tandem walk DIAGNOSTIC TESTING: LABORATORY: WBC 5.4 Hgb 8.7 Platelet 370 Na 135 K 4.3 Cl 99 CO2 28 BUN 11 Cr 0.70 glucose 100 AST 25 ALT 10 AlkPhos 72 troponin <0.012 urinalysis negative utox +opiates IMAGING: CT Head w/o contrast 06/23/19: No acute intracranial abnormality. ASSESSMENT/RECOMMENDATIONS: 44 year-old woman with PMhx of GERD, arthritis, TMJ, Grave's disease, anxiety, difficulty walking since Labor Day weekend, presenting to [facility] for seizure-like event. This is patient's first lifetime event. Patient likely had this event in the setting of benzo withdrawal as patient had been on clonazepam for many years. Patient also has had extensive work-up in the past year with no significant finding. Will not start AEDs at this time. However, discussed with patient about not driving until she sees an outpatient neurologist. Also discussed other seizure precautions such as not taking a bath, not swimming, not climbing ladders, or using heavy/dangerous machines. Stable for discharge home from neurological perspective. Past Medical History Past Medical History: GERD/Reflux, Osteoarthritis (OA), Thyroid Disorder Additional Past Medical History / Comment(s): HX OF STOMACH BLEED, TMJ DISORDER. Started w/neck,shoulder pain in January, trouble walking since Day weekend, now having some bowel/bladder problems, seeing neurologist 04-05, possible MS- trying to rule out History of Any Multi-Drug Resistant Organisms: None Reported Past Surgical History: Section, Hernia Repair Additional Past Surgical History / Comment(s): SINUS SURG, LAPAROSCOPY, Right OOPHERECTOMY JUL 2014. Jaw surg.04-10-15 anterior cervical fusion c4-c7 Past Anesthesia/Blood Transfusion Reactions: No Reported Reaction, Family Hi story of Problems w/ Anesthesia Additional Past Anesthesia/Blood Transfusion Reaction / Comment(s): PTS MOTHER HAS PONV. Past Psychological History: Anxiety Smoking Status: Current every day smoker Past Alcohol Use History: Rare Past Drug Use History: None Reported - Past Family History Mother Family Medical History: No Reported History Additional Family Medical History / Comment(s): ddd, ulcerative colitis Father Family Medical History: Osteoarthritis (OA) Medications and Allergies Home Medications Medication Instructions Recorded Confirmed Type Cholecalciferol [Vitamin D3 (25 5,000 unit PO DAILY 06/23/19 06/23/19 History Mcg = 1000 Iu)] Levothyroxine Sodium [Synthroid] 125 mcg PO DAILY 06/23/19 06/23/19 History Omeprazole [PriLOSEC] 20 mg PO DAILY 06/23/19 06/23/19 History buPROPion HCL [Wellbutrin XL] 150 mg PO DAILY 06/23/19 06/23/19 History clonazePAM [KlonoPIN] 0.5 mg PO HS PRN 06/23/19 06/23/19 History tiZANidine [Zanaflex] 4 mg PO Q6HR PRN 06/23/19 06/23/19 History traMADol HCL 50 - 100 mg PO Q4-6H PRN 06/23/19 06/23/19 History Ketamine Compound 1 ml TOPICAL QID 06/24/19 06/24/19 History Allergies Allergy/AdvReac Type Severity Reaction Status Date / Time NSAIDS (Non-Steroidal AdvReac Unknown HX OF Verified 06/23/19 23:47 Anti-Inflamma STOMACH BLEEDING, TOLD NOT TO TAKE. HIVES AROUND MOUTH Physical Examination - Vital Signs Vital Signs: Vital Signs Temp Pulse Resp BP Pulse Ox 06/24/19 05:24 98 F 98 16 119/82 99 06/24/19 00:58 100 18 113/82 97 06/23/19 23:02 103 H 18 111/83 98 06/23/19 21:41 108 H 18 103/79 97 06/23/19 20:12 99.0 F 109 H 18 104/75 100 Intake and Output 06/23/19 06/24/19 06/24/19 22:59 06:59 14:59 Other: Weight 52.163 kg Results - Laboratory Findings CBC and BMP: 06/23/19 20:45 06/23/19 20:45 Abnormal Lab Findings: Abnormal Labs 06/23/19 06/23/19 06/23/19 20:45 20:45 20:45 RBC 3.61 L Hgb 8.7 L Hct 28.3 L MCV 78.3 L MCH 24.0 L MCHC 30.6 L RDW 15.8 H Sodium 135 L Glucose 100 H Urine Opiates Screen Detected H U Tricyclic Antidepress Detected H
--- NOTE | 2019-06-24 23:57 | EEG ---
ELECTROENCEPHALOGRAM REPORT DATE OF PROCEDURE: 06/24/2019 ELECTROENCEPHALOGRAM (EEG) REPORT: TECHNIQUE: A routine 18-channel EEG was performed with video using the 10/20 international electrode placement system. HISTORY: Seizure. CURRENT MEDICATIONS: Ativan. STUDY DURATION: 24 minutes. FINDINGS: Please note that portions of the recording were limited in interpretation by the presence of muscle artifact. BACKGROUND: The background activity consisted of 8 to 9 Hz rhythmic waveforms symmetrically distributed over both posterior quadrants. ACTIVATION: Hyperventilation did not induce any changes. Photic stimulation: Symmetric driving seen. Sleep: Stages I and II sleep noted. ABNORMALITIES: None. IMPRESSION: Normal EEG. No epileptiform activity was present. No seizures were recorded. MMODL / IJN: [id number] / [facility]
== END 2019-06-24 15:17 | disposition home or self-care (01) ==
LOC: EC 20:06 → 4SSUR 22:34 → 5NMEDONC 06-24 13:24
PROVIDERS: ADMIT Hospitalist; ATTEND Hospitalist
DX: G40.409 Other generalized epilepsy and epileptic syndromes, not intractable, without status epilepticus (principal); D64.9 Anemia, unspecified; E03.9 Hypothyroidism, unspecified; F17.210 Nicotine dependence, cigarettes, uncomplicated; F41.9 Anxiety disorder, unspecified; G25.81 Restless legs syndrome; K21.9 Gastro-esophageal reflux disease without esophagitis; M19.90 Unspecified osteoarthritis, unspecified site; S01.512A Laceration without foreign body of oral cavity, initial encounter; Z79.890 Hormone replacement therapy; Z79.899 Other long term (current) drug therapy; Z82.61 Family history of arthritis; Z88.6 Allergy status to analgesic agent
CPT/HCPCS: 96361 ×2; 96374; 99285; 36415; 95819; 93005; 80053; 84484; 85025; 81003; 81025; 80306; 70450; G0378 ×3; J2060